=== PATIENT | male | born 1960 | race Caucasian/White ===

== ENCOUNTER 2018-02-01 06:11 | Day surgery (SDC) | payer OTHER ==
[2018-02-01] MEDS ORDERED: FENTAnyl 50 MCG/ML VIAL (08:04)
[2018-02-01] MEDS ORDERED: MIDAZOLAM 1 MG/ML 2 ML INJ (08:04)
[2018-02-01] MEDS ORDERED: ETOMIDATE 20 MG INJ (08:05)
== END 2018-02-01 15:10 | disposition home or self-care (01) ==
LOC: GIL 06:11
DX: K92.1 Melena (principal); K29.70 Gastritis, unspecified, without bleeding; K64.8 Other hemorrhoids; I10 Essential (primary) hypertension; I25.10 Atherosclerotic heart disease of native coronary artery without angina pectoris; E11.9 Type 2 diabetes mellitus without complications; Z86.73 Personal history of transient ischemic attack (TIA), and cerebral infarction without residual deficits
CPT/HCPCS: 43239; 88305